=== PATIENT | female | born 1965 | race Caucasian/White ===

== ENCOUNTER 2016-09-26 00:19 | Emergency (ER) | payer BC ==
[2016-09-26] MEDS ORDERED: Aspirin 81 MG Tab.Chew PO ONE (00:55)
[2016-09-26] MEDS ORDERED: Nitroglycerin 0.4 MG Tab.SL SL PRN (00:56)
--- NOTE | 2016-09-26 00:59 | EDM.PDOC ---
[id number] 5d HEADACHE/CHEST PAINS Time Seen by Provider: 09/26/16 00:58 Source of Information: Reports: Patient, Family History Limitations: Reports: No Limitations - History of Present Illness INITIAL COMMENTS - FREE TEXT/NARRATIVE: pt has midsternal chest pain. She has not vomited today. She did not get sweaty. She has done alot of drinking over the weekend. Onset: Today Duration: Hour(s): Location: Reports: Chest Associated Symptoms: Reports: Chest Pain, Other (pain does go to her back. ) - Related Data Allergies Allergy/AdvReac Type Severity Reaction Status Date / Time No Known Allergies Allergy Verified 09/27/16 08:38 Home Meds: Home Meds B Complex & C No.10/Folic Acid [Nephronex] 900 mcg PO DAILY 03/18/16 [History] Calcium Carbonate/Vitamin D3 [Calcium 1,000 + D3 Caplet] 1 tab PO DAILY [History] Cyanocobalamin (Vitamin B-12) [Vitamin B-12] 1,000 mcg SL DAILY 03/18/16 [ History] Gluc Garrido/Chondro Garrido A/Vit C/Mn [Glucosamine-Chondroitin Cap] 1 tab PO BID [History] Pediatric Multivit Comb No.136 [Children Multivitamin] 1 tab PO DAILY 03/18/16 [ History] Citalopram [Citalopram Hbr] 40 mg PO DAILY 09/26/16 [History] Past Medical History HEENT History: Reports: Impaired Vision Other HEENT History: wears glasses [employer] History: Reports: Neurological History: Reports: Concussion Psychiatric History: Reports: Anxiety Endocrine/Metabolic History: Reports: Obesity/BMI 30+ Hematologic History: Reports: Blood Transfusion(s), Iron Deficiency - Infectious Disease History Infectious Disease History: Reports: Chicken Pox - Past Surgical History GI Surgical History: Reports: Bariatric Procedure, EGD Female Surgical History: Reports: Endometrial Ablation Social & Family History - Family History Family Medical History: Noncontributory - Tobacco Use Smoking Status *Q: Never Smoker Years of Tobacco use: 13 Second Hand Smoke Exposure: No - Caffeine Use Caffeine Use: Reports: Coffee - Alcohol Use Days Per Week of Alcohol Use: 1 Number of Drinks Per Day: 1 Total Drinks Per Week: 1 - Recreational Drug Use Recreational Drug Use: No ED ROS GENERAL - Review of Systems Review Of Systems: See Below Constitutional: Reports: No Symptoms HEENT: Reports: No Symptoms Respiratory: Reports: No Symptoms Cardiovascular: Reports: Chest Pain Endocrine: Reports: No Symptoms GI/Abdominal: Reports: No Symptoms : Reports: No Symptoms ED EXAM, GENERAL - Physical Exam Exam: See Below Free Text/Narrative:: pt arrived feeling pain in her mid chest and going to her back. She does not feel sick to her stomach. m Exam Limited By: No Limitations General Appearance: Alert, Anxious, Mild Distress Ears: Normal TMs Nose: Normal Inspection Throat/Mouth: Normal Inspection Head: Atraumatic Neck: Normal Inspection Respiratory/Chest: No Respiratory Distress Cardiovascular: Regular Rate, Rhythm, Tachycardia GI/Abdominal: Soft, Non-Tender Rectal (Female) Exam: Deferred Back Exam: Normal Inspection Extremities: Normal Inspection Psychiatric: Normal Affect Course - Vital Signs Last Recorded V/S: Last Vital Signs Temp 37.0 C 09/26/16 00:52 Pulse 75 09/26/16 00:52 Resp 20 09/26/16 00:52 BP 167/96 H 09/26/16 01:18 Pulse Ox 97 09/26/16 00:52 - Orders/Labs/Meds Labs: Laboratory Tests 09/26/16 09/26/16 09/26/16 Range/Units 00:56 00:56 00:56 WBC 5.0 (4.5-11.0) K/uL RBC 4.01 (3.30-5.50) M/uL Hgb 13.0 (12.0-15.0) g/dL Hct 39.0 (36.0-48.0) % MCV 97 (80-98) fL MCH 32 H (27-31) pg MCHC 33 (32-36) % Plt Count 195 (150-400) K/uL Neut % (Auto) 47 (36-66) % Lymph % (Auto) 38 (24-44) % [place] % (Auto) 9 H (2-6) % Eos % (Auto) 5 H (2-4) % Baso % (Auto) 1 (0-1) % Sodium 138 L (140-148) mmol/L Potassium 3.5 L (3.6-5.2) mmol/L Chloride 105 (100-108) mmol/L Carbon Dioxide 23 (21-32) mmol/L Anion Gap 13.5 (5.0-14.0) mmol/L BUN 13 (7-18) mg/dL Creatinine 0.8 (0.6-1.0) mg/dL Est Cr Clr Drug Dosing 66.54 mL/min Estimated GFR (MDRD) > 60 (>60) Glucose 93 (74-106) mg/dL Calcium 8.3 L (8.5-10.1) mg/dL Total Bilirubin 0.3 (0.2-1.0) mg/dL AST 30 (15-37) U/L ALT 32 (12-78) U/L Alkaline Phosphatase 82 (46-116) U/L Creatine Kinase 147 (26-192) U/L Troponin I < 0.017 (0.000-0.056) ng/mL Total Protein 7.3 (6.4-8.2) g/dL Albumin 3.3 L (3.4-5.0) g/dL Globulin 4.0 H (2.3-3.5) g/dL Albumin/Globulin Ratio 0.8 L (1.2-2.2) Amylase (25-115) U/L Lipase (73-393) U/L Urine Color Urine Appearance Urine pH (4.5-8.0) Ur Specific [place] (1.008-1.030) Urine Protein (NEGATIVE) mg/dL Urine Glucose (UA) (NEGATIVE) mg/dL Urine Ketones (NEGATIVE) mg/dL Urine Occult Blood (NEGATIVE) Urine Nitrite (NEGATIVE) Urine Bilirubin (NEGATIVE) Urine Urobilinogen (NORMAL) mg/dL Ur Leukocyte Esterase (NEGATIVE) Urine RBC (0-5) Urine WBC (0-5) Ur Epithelial Cells Amorphous Sediment Urine Bacteria Urine Mucus 09/26/16 09/26/16 Range/Units 00:57 01:14 WBC (4.5-11.0) K/uL RBC (3.30-5.50) M/uL Hgb (12.0-15.0) g/dL Hct (36.0-48.0) % MCV (80-98) fL MCH (27-31) pg MCHC (32-36) % Plt Count (150-400) K/uL Neut % (Auto) (36-66) % Lymph % (Auto) (24-44) % [place] % (Auto) (2-6) % Eos % (Auto) (2-4) % Baso % (Auto) (0-1) % Sodium (140-148) mmol/L Potassium (3.6-5.2) mmol/L Chloride (100-108) mmol/L Carbon Dioxide (21-32) mmol/L Anion Gap (5.0-14.0) mmol/L BUN (7-18) mg/dL Creatinine (0.6-1.0) mg/dL Est Cr Clr Drug Dosing mL/min Estimated GFR (MDRD) (>60) Glucose (74-106) mg/dL Calcium (8.5-10.1) mg/dL Total Bilirubin (0.2-1.0) mg/dL AST (15-37) U/L ALT (12-78) U/L Alkaline Phosphatase (46-116) U/L Creatine Kinase (26-192) U/L Troponin I (0.000-0.056) ng/mL Total Protein (6.4-8.2) g/dL Albumin (3.4-5.0) g/dL Globulin (2.3-3.5) g/dL Albumin/Globulin Ratio (1.2-2.2) Amylase 43 (25-115) U/L Lipase 165 (73-393) U/L Urine Color Yellow Urine Appearance Clear Urine pH 6.0 (4.5-8.0) Ur Specific [place] 1.010 (1.008-1.030) Urine Protein Negative (NEGATIVE) mg/dL Urine Glucose (UA) Normal (NEGATIVE) mg/dL Urine Ketones Negative (NEGATIVE) mg/dL Urine Occult Blood Negative (NEGATIVE) Urine Nitrite Negative (NEGATIVE) Urine Bilirubin Negative (NEGATIVE) Urine Urobilinogen Normal (NORMAL) mg/dL Ur Leukocyte Esterase Negative (NEGATIVE) Urine RBC 0-5 (0-5) Urine WBC 0-5 (0-5) Ur Epithelial Cells Rare Amorphous Sediment Not seen Urine Bacteria Few Urine Mucus Not seen Meds: Medications Discontinued Medications Generic Name Dose Route Start Last Admin Trade Name Freq PRN Reason Stop Dose Admin Aspirin 324 mg 09/26/16 00:55 09/26/16 01:16 Aspirin PO 09/26/16 00:56 324 mg ONETIME ONE Administration Lorazepam 0.5 mg 09/26/16 01:23 09/26/16 01:29 Ativan PO 09/26/16 01:24 0.5 mg ONETIME ONE Administration Nitroglycerin 0.4 mg 09/26/16 00:56 09/26/16 01:18 Nitrostat SL 09/26/16 01:07 0.4 mg Q5M PRN Administration Chest Pain - Re-Assessments/Exams Free Text/Narrative Re-Assessment/Exam: 09/26/16 02:33 pt was given ativan and she felt much better. The back pain went away for her. Her lab work showed normal cardiac enzymes, her ekg looked good. She seemed quite shakey for a period of time. The ativan helped that. 09/28/16 18:16 Departure - Departure Time of Disposition: 02:23 Disposition: Home, Self-Care 01 Condition: Fair Clinical Impression: Atypical chest pain Instructions: Nonspecific Chest Pain, [id number] Referrals: Julio Whitney MD [Primary Care Provider] - Forms: ED Department Discharge Care Plan Goals: rtc for any sig increse in pain, rtc for a exercise cardiolyte. atvan .5 q8h prn for anxiety and pain.
[2016-09-26 01:19] VITALS: BP 167/96
[2016-09-26] MEDS ORDERED: LORazepam 0.5 MG Tab PO ONE (01:23)
--- NOTE | 2016-09-26 11:34 | CR ---
Mild cardiomegaly. Pulmonary vasculature within normal limits. No focal consolidation.
== END 2016-09-26 03:11 | disposition home or self-care (01) ==
LOC: JP.ED 00:19
DX: R07.89 Other chest pain (principal); F41.9 Anxiety disorder, unspecified; E66.9 Obesity, unspecified; Z98.84 Bariatric surgery status; Z79.899 Other long term (current) drug therapy
CPT/HCPCS: 36415; 71010; 80053; 81001; 82150; 82550; 83690; 84484; 85025; 99285; A9270; 93005

== ENCOUNTER 2017-03-26 10:53 | Day surgery (SDC) | payer BC ==
[~2017-03-26 10:53] MED LIST: Bupivacaine 0.5%/EPINEPHrine 1:200,000 50 ML MDV ONE; EPINEPHrine 1 MG/ML SDV ONE; Povidone-Iodine 10% Soln 118.25 ML Bottle ONE; ceFAZolin 2 GM in Premix Bag 1 BAG IV ONE
[2017-03-26] MEDS ORDERED: Midazolam 1 MG/ML 2 ML SDV ONE (12:52)
[2017-03-26] MEDS ORDERED: Neostigmine Methylsulfate 1 MG/ML 5 ML Syringe ONE (12:52)
[2017-03-26] MEDS ORDERED: Ondansetron 4 MG/2 ML SDV ONE (12:52)
[2017-03-26] MEDS ORDERED: Rocuronium 50 MG/5 ML Vial ONE (12:52)
[2017-03-26] MEDS ORDERED: Dexamethasone 4 MG/ML SDV ONE (12:52)
[2017-03-26] MEDS ORDERED: Glycopyrrolate 0.2 MG/ML 5 ML MDV ONE (12:52)
[2017-03-26] MEDS ORDERED: Succinylcholine 200 MG/10 ML MDV ONE (12:52)
[2017-03-26] MEDS ORDERED: Propofol 200 MG/20 ML SDV ONE (12:52)
[2017-03-26] MEDS ORDERED: fentaNYL 250 MCG/5 ML SDV ONE (12:53)
[2017-03-26] MEDS ORDERED: Bupivacaine 0.5% 50 ML MDV ONE (12:55)
[2017-03-26] MEDS: Lactated Ringers 1,000 ML IV SCH ×2 (14:29→20:29)
[2017-03-26] MEDS ORDERED: ePHEDrine 50 MG/ML SDV ONE (16:05)
[2017-03-26] MEDS ORDERED: hydrOXYzine HCl 100 MG/2 ML SDV IM ONE (17:29)
[2017-03-26] MEDS ORDERED: fentaNYL 100 MCG/2 ML SDV IVPUSH ONE (17:38)
[2017-03-26] MEDS ORDERED: Ondansetron 4 MG Tab.DIS PO PRN (18:42)
[2017-03-26] MEDS: Acetaminophen/oxyCODONE 325-5 MG Tab PO PRN (19:38)
[2017-03-26] MEDS ORDERED: Zolpidem 5 MG Tab PO PRN (21:37)
--- NOTE | 2017-03-26 22:34 | OR ---
DATE OF PROCEDURE: 03/26/2017 PREOPERATIVE DIAGNOSES: 1. Right shoulder rotator cuff tear. 2. Right shoulder bursitis. 3. Right shoulder impingement. POSTOPERATIVE DIAGNOSES: 1. Right shoulder rotator cuff tear. 2. Right shoulder bursitis. 3. Right shoulder impingement. PROCEDURE: 1. Right shoulder arthroscopy with subacromial decompression. 2. Partial bursectomy. 3. Open rotator cuff repair. EDUCATIONAL COORDINATOR: PATRICIO Lei. ANESTHESIA: Interscalene block plus general endotracheal intubation. FLUIDS: Lactated Ringer solution. ESTIMATED BLOOD LOSS: 10 mL. COMPLICATIONS: None. SPECIMEN: None. DISCHARGE DISPOSITION: Stable to PACU. INDICATIONS FOR THE PROCEDURE: The patient was seen preoperatively by myself and the Anesthesia staff in the preoperative holding area where the operative site was marked. She was seen preoperatively in the clinic. She had failed extensive nonoperative treatment. Risks and benefits of the procedure were explained to the patient. Informed consent was obtained. Preoperative imaging confirmed the above-mentioned diagnoses. DETAILS OF THE PROCEDURE: The patient was seen preoperatively by myself and the Anesthesia staff in the preoperative holding area where the operative site was marked. She was brought to the operative suite by the Anesthesia staff where general anesthesia was administered. Interscalene block had already been placed. She was placed into a beach chair position. All extremities found to be well padded. The right upper extremity was then prepped and draped in a sterile manner. Time-out was called identifying the correct patient, correct procedure, the correct site, and antibiotics had begun within appropriate period of time. A posterior portal was first made. The scope was entered and was brought into the joint. There was extensive tissue fraying of the undersurface of the rotator cuff as well as inflammation around the labrum. James complex was identified next to the middle glenohumeral ligament. The biceps tendon was intact without any evidence of biceps tendinitis. I did use the shaver and debride the inferior surface of the rotator cuff and did use the ablation in this area. I then removed my instruments from the joint and then went into the subacromial space. I made a lateral portal and entered with a trocar and a shaver. There was considerable bursitis present and extensive bursectomy was done. The acromial hook was then identified and cleared using the shaver as well as the ablation unit. I then used a usman to remove the hook of the acromion. After this had been accomplished, I then removed my instruments and then re-prepped and then made an incision on the anterior aspect of the acromion over the raphae between the anterior middle bellies of the deltoid and carried this down approximately 4 cm. I used Gelpi for retraction. I removed more bursa over the rotator cuff with some gentle external rotation. I was able to identify the area of the rotator cuff tear. I placed a JuggerKnot anchor through both regular sutures and margin convergence. I repaired the tear down to the anchor. After this had been accomplished, I copiously irrigated with saline. We then placed #1 Stratafix in the deltoid, followed by skin vinicius in the portals as well as the main incision. The patient was then allowed to awaken from general anesthesia and transferred into her hospital bed to the PACU in stable condition. Niranjan Crowe DO /[id number]
[2017-03-27 02:33] VITALS: BP 120/78
[2017-03-27] MEDS: Acetaminophen/oxyCODONE 325-5 MG Tab PO PRN (02:42)
== END 2017-03-27 08:15 | disposition home or self-care (01) ==
LOC: JP.SDS 10:53 → JP.MS 18:30 → JP.SDS 03-27 08:15
PROVIDERS: ATTEND Orthopaedic Surgery
DX: M75.121 Complete rotator cuff tear or rupture of right shoulder, not specified as traumatic (principal); M75.51 Bursitis of right shoulder; M75.41 Impingement syndrome of right shoulder; E66.9 Obesity, unspecified; Z68.30 Body mass index [BMI] 30.0-30.9, adult; H54.7 Unspecified visual loss; F41.9 Anxiety disorder, unspecified; Z79.899 Other long term (current) drug therapy; Z98.890 Other specified postprocedural states
CPT/HCPCS: 29826; 29827; A9270; J0171; J0690; J1100; J2250; J2405; J2704; J2710; J3010; J3410; J7120; J0330

== ENCOUNTER 2024-07-25 07:15 | Emergency (ER) | payer BC, OTHER ==
[2024-07-25 07:41] VITALS: BP 168/97; PULSE 85
[2024-07-25] MEDS ORDERED: Propofol 200 MG/20 ML SDV ONE (09:49)
== END 2024-07-25 11:42 | disposition home or self-care (01) ==
LOC: JP.ED 07:15
DX: S52.612A Displaced fracture of left ulna styloid process, initial encounter for closed fracture (principal); S52.512A Displaced fracture of left radial styloid process, initial encounter for closed fracture; W18.2XXA Fall in (into) shower or empty bathtub, initial encounter; Y92.002 Bathroom of unspecified non-institutional (private) residence as the place of occurrence of the external cause
CPT/HCPCS: 01820; 25605; 73110; 73120; 76000; 99152; 99153; 99283; J2704

== ENCOUNTER 2024-08-11 08:38 | Day surgery (SDC) | payer OTHER ==
[~2024-08-11 08:38] MED LIST changes: -Bupivacaine 0.5%/EPINEPHrine 1:200,000 50 ML MDV ONE; +Dexamethasone 4 MG/ML SDV ONE; -EPINEPHrine 1 MG/ML SDV ONE; +Ondansetron 4 MG/2 ML SDV ONE; -Povidone-Iodine 10% Soln 118.25 ML Bottle ONE; +Propofol 200 MG/20 ML SDV ONE; -ceFAZolin 2 GM in Premix Bag 1 BAG IV ONE; +fentaNYL 250 MCG/5 ML SDV ONE
[2024-08-11 09:03] LABS: HEMATOCRIT 36.8 % (34.3-46.0); MEAN CORPUSCULAR HEMOGLOBIN 33.4 pg (31.6-35.5); MEAN CORPUSCULAR HGB CONC 32.6 g/dL (31.6-35.5); MEAN CORPUSCULAR VOLUME 102.5 fL (81.4-99.0); RED BLOOD CELL COUNT 3.59 M/uL (3.77-5.24); WHITE BLOOD CELL COUNT,WBC 4.2 K/uL (3.2-11.0)
[2024-08-11 09:17] LABS: ANION GAP 8.2 mmol/L (5.0-14.0); BLOOD UREA NITROGEN,BUN 13 mg/dL (7-18); CALCIUM 9.3 mg/dL (8.5-10.1); CARBON DIOXIDE,CO2 31 mmol/L (21-32); CHLORIDE,CL 101 mmol/L (100-108); CREATININE 0.7 mg/dL (0.6-1.0); ESTIMATED GFR 100 mL/min (>60); GLUCOSE RANDOM 102 mg/dL (74-106); POTASSIUM,K 3.8 mmol/L (3.6-5.2); SODIUM,NA 140 mmol/L (140-148)
[2024-08-11] MEDS ORDERED: Midazolam 1 MG/ML 2 ML SDV ONE (09:17)
[2024-08-11] MEDS: Lactated Ringers 1,000 ML IV SCH (09:30)
[2024-08-11] MEDS: ceFAZolin 2 GM in Premix Bag 1 BAG IV ONE (10:30)
[2024-08-11] MEDS: Bupivacaine 0.5% 30 ML SDV ONE (10:58)
[2024-08-11] MEDS ORDERED: Atropine 0.4 MG/ML SDV ONE (10:59)
[2024-08-11] MEDS ORDERED: Dexamethasone 4 MG/ML SDV ONE (11:01)
[2024-08-11] MEDS ORDERED: Ondansetron 4 MG/2 ML SDV ONE (11:01)
[2024-08-11] MEDS ORDERED: hydrALAZINE 20 MG/ML SDV ONE (11:03)
[2024-08-11] MEDS: Ketorolac 30 MG/ML SDV IVPUSH ONE (13:11)
[2024-08-11] MEDS: oxyCODONE 5 MG Tab PO ONE (13:12)
[2024-08-11 14:37] VITALS: BP 137/86; PULSE 86
== END 2024-08-11 15:45 | disposition home or self-care (01) ==
LOC: JP.SDS 08:38
PROVIDERS: ATTEND Specialist
DX: S52.501P Unspecified fracture of the lower end of right radius, subsequent encounter for closed fracture with malunion (principal); I10 Essential (primary) hypertension; Z87.891 Personal history of nicotine dependence; Z88.1 Allergy status to other antibiotic agents; X58.XXXA Exposure to other specified factors, initial encounter
CPT/HCPCS: 25400; 36415; 76000; 80048; 85027; 93005; 93010; A9270; C1713; J0360; J0461; J0665; J0690; J1100; J1885; J2250; J2405; J2704; J3010; J7120; 01830-QZ